=== PATIENT | male | born 1930 | race Caucasian/White ===

== ENCOUNTER 2016-07-03 06:04 | Observation (INO) | payer OTHER, BC ==
[~2016-07-03] VITALS: Ht 172.7 cm; Wt 100.0 kg
[~2016-07-03 06:04] MED LIST: ALL DAY ALLERGY10 M3 PO; ASPERDRINK81 MG PO; ASPIR-LOW81 MG PO; AXIRON90 ML TD; BYSTOLIC10 MG PO; BYSTOLIC5 MG PO; CARAFATE100 MG/ML PO; CETIRIZINE HCL10 M2 PO; CLONAZEPAM0.5 MG PO; CYANOCOBALAM1000 MCG PO; FISH OIL + VIT1 EACH PO; FLOMAX0.4 MG PO; IMDUR30 MG PO; LISINOPRIL-HCT1 EAC3 PO; METFORMIN HCL500 MG PO; PANTOPRAZOLE SO40 MG PO; PRAVASTATIN SOD40 MG PO; PROTONIX40 MG PO; RANITIDINE HCL300 MG PO; ROPINIROLE HCL1 MG PO; TRAMADOL HCL50 MG PO; VITAMIN D35000 UNIT PO; ZYRTEC10 M3 PO; fluticasone propiona; glucosamine chondroi
[2016-07-03 06:59] LABS: HEMATOCRIT 37.5 % (38.0-50.0); MCH 28.8 PG (29.0-34.0); MCHC 34.1 G/DL (30.0-36.0); MCV 84.5 FL (86-99); PLATELET COUNT 155 K/uL (156-360); RBC DIS.WIDTH-CV 14.9 % (11.8-14.6); RBC DIS.WIDTH-SD 44.9 % (39-53); RED BLOOD COUNT 4.44 M/uL (4.00-5.50); WHITE BLOOD COUNT 7.5 K/uL (4.1-10.2)
[2016-07-03 07:36] LABS: ANION GAP 12 MEQ/L (2-14); CHLORIDE 102 MEQ/L (99-109); POTASSIUM 4.2 MEQ/L (3.7-5.4); SAMPLE HEMOLYSIS CHECK 1; SAMPLE ICTERIC CHECK 0; SAMPLE LIPEMIA CHECK 0; SODIUM 138 MEQ/L (136-147)
[2016-07-03 07:42] LABS: GFR ESTIMATE (CALCULATED) > 59 mL/min/; GLUCOSE 157 mg/dL (70-99); TROP-I INTERPRETATION NEGATIVE; TROPONIN-I < 0.01 ng/mL (0.0-0.30); UREA NITROGEN (BUN) 18 mg/dL (9-23)
[2016-07-03 08:07] LABS: ALKALINE PHOSPHATASE 62 IU/L (3-129); LIPASE 43 U/L (1.0-51.0); TOTAL BILIRUBIN 0.4 MG/DL (0.0-1.0)
[2016-07-03 09:27] VITALS: BP 151/78
[2016-07-03 11:57] LABS: POINT-OF-CARE METER ID UU14162513
[2016-07-03 12:31] VITALS: BP 122/56
[2016-07-03 12:54] LABS: HDL CHOLESTEROL 38 MG/DL (Desirable>=40); LDL CHOLESTEROL 58 mg/dL (Desirable<100); NON-HDL CHOLESTEROL 103 mg/dL (Desirable<160); TOTAL CHOLESTEROL 141 mg/dL (Desirable<200); TRIGLYCERIDES 226 MG/DL (Normal: <150)
[2016-07-03 12:58] LABS: TROP-I INTERPRETATION NEGATIVE; TROPONIN-I < 0.01 ng/mL (0.0-0.30)
[2016-07-03 14:59] VITALS: BP 139/87
[2016-07-03 16:43] LABS: POINT-OF-CARE METER ID UU13113831
[2016-07-03 19:17] LABS: TROP-I INTERPRETATION NEGATIVE; TROPONIN-I < 0.01 ng/mL (0.0-0.30)
[2016-07-03 21:13] LABS: POINT-OF-CARE METER ID UU13113831
[2016-07-03 21:34] VITALS: BP 134/63
[2016-07-03 23:52] VITALS: BP 149/67
[2016-07-04 04:19] VITALS: BP 167/73
[2016-07-04 08:43] VITALS: BP 139/60
[2016-07-04 10:41] VITALS: BP 158/70
[2016-07-04] MEDS ORDERED: METFORMIN HCL500 M1 PO (11:44)
[2016-07-04] MEDS ORDERED: FLONASE16 G1 BOTH NARES (11:45)
[2016-07-04] MEDS ORDERED: AZELASTINE137 MCG/0. BOTH NARES (11:46)
[2016-07-04] MEDS ORDERED: JANUVIA100 MG PO (11:46)
== END 2016-07-04 13:11 | disposition home or self-care (01) ==
LOC: EME 06:04 → EDOF 08:26 → 5WEST 08:26 → EDOF 08:26 → 5WEST 09:27
PROVIDERS: Hospitalist; Physician Assistant Medical
DX: R07.89 Other chest pain (principal); I25.10 Atherosclerotic heart disease of native coronary artery without angina pectoris; R10.13 Epigastric pain; K21.9 Gastro-esophageal reflux disease without esophagitis; I10 Essential (primary) hypertension; E78.5 Hyperlipidemia, unspecified; E11.9 Type 2 diabetes mellitus without complications; G47.33 Obstructive sleep apnea (adult) (pediatric); I27.2 Other secondary pulmonary hypertension; H93.13 Tinnitus, bilateral; Z82.49 Family history of ischemic heart disease and other diseases of the circulatory system; N40.0 Benign prostatic hyperplasia without lower urinary tract symptoms; E66.9 Obesity, unspecified; Z68.33 Body mass index [BMI] 33.0-33.9, adult
CPT/HCPCS: 71020; 80048; 80061; 80076; 82948; 83690; 84484; 85027; 93005; 99281; 99285; G0378; J1815; J2270; J2405

== ENCOUNTER → 2017-03-03 | Outpatient (CLI) | payer OTHER, BC ==
[~2017-03-03] MED LIST changes: +AZELASTINE137 MCG/0. BOTH NARES; +FLONASE16 G1 BOTH NARES; +JANUVIA100 MG PO; +METFORMIN HCL500 M1 PO
== END | disposition home or self-care (01) ==
LOC: NUC 07:00
DX: R11.0 Nausea (principal)
CPT/HCPCS: 78264; A9541